=== PATIENT | male | born 1940 | race Caucasian/White ===

== ENCOUNTER 2018-02-07 06:21 | Day surgery (SDC) | payer MEDICARE ==
[~2018-02-07 06:21] MED LIST: CHILD ASA81 MG PO; LANSOPRAZOLE15 MG PO; LISINOPRIL5 MG OR; LOVASTATIN20 MG PO; MEDDOSEPAK PO; MELOXICAM7.5 MG PO; SYNTHROID OR; XANAX0.25 MG PO
[2018-02-07 08:11] VITALS: BP 139/86
== END 2018-02-07 08:37 | disposition home or self-care (01) ==
LOC: ORM 06:21
PROVIDERS: ATTEND Anesthesiology Pain Medicine
PROC: 3E0R33Z Introduction of Anti-inflammatory into Spinal Canal, Percutaneous Approach (ICD-10-PCS; principal; 2018-02-07)
PROC: B01B1ZZ Fluoroscopy of Spinal Cord using Low Osmolar Contrast (ICD-10-PCS; 2018-02-07)
DX: M54.17 Radiculopathy, lumbosacral region (principal); M79.604 Pain in right leg
CPT/HCPCS: Q9967